=== PATIENT | female | born 1980 | race Asian ===

== ENCOUNTER 2024-01-07 14:37 | Outpatient (CLI) | payer OTHER | END 2024-01-07 14:57 | disposition home or self-care (01) | LOC: MAMO-SONO 14:37 | PROVIDERS: ATTEND General Practice | DX: N60.11 Diffuse cystic mastopathy of right breast (principal); N60.12 Diffuse cystic mastopathy of left breast; N64.4 Mastodynia; N63.0 Unspecified lump in unspecified breast ==